=== PATIENT | male | born 1985 | race Caucasian/White ===

== ENCOUNTER 2025-01-05 21:00 | Emergency (ER) | payer MEDICAID ==
[~2025-01-05] VITALS: Ht 185.4 cm; Wt 120.0 kg
[2025-01-05 21:04] VITALS: O2SAT 98
[2025-01-05 22:51] VITALS: BP 140/87; PULSE 92; RESP 18; TEMP 36.6; O2SAT 100
== END 2025-01-05 22:52 | disposition home or self-care (01) ==
LOC: ER 21:00
DX: Z00.00 Encounter for general adult medical examination without abnormal findings (principal); E11.9 Type 2 diabetes mellitus without complications
CPT/HCPCS: 99283